=== PATIENT | male | born 1965 | race Caucasian/White ===

== ENCOUNTER → 2016-10-29 | Outpatient (CLI) | payer OTHER | LOC: M WUC 08:27 | PROVIDERS: ATTEND Family Medicine | DX: Z00.00 Encounter for general adult medical examination without abnormal findings (principal) ==

== ENCOUNTER → 2017-12-16 | Outpatient (REF) | payer OTHER ==
[2017-12-16 19:09] LABS: ANION GAP 6 MEQ/L (8-16); BLOOD UREA NITROGEN 12 MG/DL (7-18); CARBON DIOXIDE LEVEL 29 MEQ/L (21-32); CHLORIDE LEVEL 106 MEQ/L (98-107); CREATININE FOR GFR 0.95 MG/DL (0.70-1.30); GLOMERULAR FILTRATION RATE > 60.0 (>56); GLUCOSE, FASTING 112 MG/DL (70-100); POTASSIUM SERUM 4.2 MEQ/L (3.5-5.1); SODIUM LEVEL 141 MEQ/L (136-145)
== END ==
LOC: M SFHCPLAZ 16:14
DX: Z01.818 Encounter for other preprocedural examination (principal)

== ENCOUNTER → 2018-04-24 | Outpatient (CLI) | payer OTHER ==
[2018-04-24 14:29] LABS: HEMOGLOBIN 15.1 g/dl (13.5-17.5)
[2018-04-24 14:48] LABS: CHOLESTEROL LEVEL 239 MG/DL (<200); CHOLESTEROL RISK RATIO 6.638 (<5); HDL CHOLESTEROL 36 MG/DL (>40); LDL CHOLESTEROL 178 MG/DL (<100); NON-HDL-C 203 MG/DL; TRIGLYCERIDES LEVEL 124 MG/DL (<150)
[2018-04-24 15:11] LABS: ESTIMATED AVERAGE GLUCOSE 120 MG/DL (60-110); HEMOGLOBIN A1c 5.8 %
== END ==
LOC: M WUC 09:09
DX: R73.03 Prediabetes (principal); Z13.220 Encounter for screening for lipoid disorders
CPT/HCPCS: 83036

== ENCOUNTER → 2018-09-17 | Outpatient (REF) | payer OTHER ==
[2018-09-17 13:56] LABS: BLOOD UREA NITROGEN 18 MG/DL (7-18); CALCIUM LEVEL 9.1 MG/DL (8.5-10.1); CARBON DIOXIDE LEVEL 32 MEQ/L (21-32); CHLORIDE LEVEL 104 MEQ/L (98-107); CREATININE FOR GFR 0.98 MG/DL (0.70-1.30); GLOMERULAR FILTRATION RATE > 60.0 (>56); GLUCOSE, FASTING 103 MG/DL (70-100); POTASSIUM SERUM 4.4 MEQ/L (3.5-5.1); SODIUM LEVEL 141 MEQ/L (136-145)
== END ==
LOC: M SFHCPLAZ 12:08
PROVIDERS: ATTEND Family Medicine
DX: M75.101 Unspecified rotator cuff tear or rupture of right shoulder, not specified as traumatic (principal)

== ENCOUNTER → 2019-04-28 | Outpatient (REF) | payer OTHER ==
[2019-04-28 16:34] LABS: HEMATOCRIT 44.7 % (42.0-52.0); HEMOGLOBIN 15.3 g/dl (13.5-17.5)
[2019-04-28 16:39] LABS: BLOOD UREA NITROGEN 16 MG/DL (7-18); CALCIUM LEVEL 9.4 MG/DL (8.5-10.1); CARBON DIOXIDE LEVEL 27 MEQ/L (21-32); CHLORIDE LEVEL 106 MEQ/L (98-107); CHOLESTEROL LEVEL 228 MG/DL (<200); CREATININE FOR GFR 1.01 MG/DL (0.70-1.30); GLOMERULAR FILTRATION RATE > 60.0 (>56); GLUCOSE, FASTING 116 MG/DL (70-100); HDL CHOLESTEROL 41 MG/DL (>40); LDL CHOLESTEROL 148 MG/DL (<100); NON-HDL-C 187 MG/DL; POTASSIUM SERUM 4.1 MEQ/L (3.5-5.1); SODIUM LEVEL 140 MEQ/L (136-145); TRIGLYCERIDES LEVEL 197 MG/DL (<150)
[2019-04-28 17:17] LABS: HEMOGLOBIN A1c 6.5 %
[2019-04-29 10:13] LABS: HEPATITIS C VIRUS ABY INDEX 0.1 INDEX (<0.8); HIV 1&2 SCREEN CENTAUR NEGATIVE (NEGATIVE)
== END ==
LOC: M SFHCPLAZ 13:54
PROVIDERS: ATTEND Family Medicine
DX: Z11.4 Encounter for screening for human immunodeficiency virus [HIV] (principal); Z11.59 Encounter for screening for other viral diseases; Z13.1 Encounter for screening for diabetes mellitus; Z13.220 Encounter for screening for lipoid disorders

== ENCOUNTER → 2019-06-04 | Outpatient (CLI) | payer OTHER ==
--- NOTE | 2019-06-05 17:02 | REP ---
Clinical: Lung screening. History smoking. Comparison: None Technique: Axial low-dose noncontrast images from the thoracic inlet to the upper abdomen using lung screening technique. Findings: The lung tanner are well-aerated. No consolidation, significant nodule or mass lesion is appreciated. No pleural effusion/reaction or pneumothorax. Tracheobronchial tree is patent. Mediastinum demonstrates mild atherosclerotic changes of the coronary arteries without cardiomegaly. Impression: Lung-RADS category I. No nodule or suspicious abnormality. Management recommendations include annual low-dose CT evaluation. Electronically Signed by Wes Lazcano MD 06/05/2019 04:53 P
== END ==
LOC: M RAD 15:45
PROVIDERS: ATTEND Family Medicine
DX: Z12.2 Encounter for screening for malignant neoplasm of respiratory organs (principal); F17.211 Nicotine dependence, cigarettes, in remission

== ENCOUNTER → 2020-08-10 | Outpatient (CLI) | payer OTHER ==
[2020-08-10 10:30] LABS: BASO # 0.1 10^3/uL (0.0-0.2); BASO % 1.3 % (0.0-1.0); EOS # 0.1 10^3/uL (0.0-0.5); EOS % 1.8 % (0.0-3.0); HEMATOCRIT 46.8 % (42.0-52.0); HEMOGLOBIN 15.5 g/dl (13.5-17.5); LYMPH # 1.4 10^3/uL (1.5-5.0); LYMPH % 30.6 % (24.0-44.0); MEAN CORPUSCULAR HEMOGLOBIN 28.8 pg (27.0-33.0); MEAN CORPUSCULAR HGB CONC 33.1 g/dl (32.0-36.5); MONO # 0.4 10^3/uL (0.0-0.8); MONO % 9.7 % (0.0-5.0); NEUTROPHILS # 2.5 10^3/uL (1.5-8.5); NEUTROPHILS % 55.5 % (36.0-66.0); PLATELET COUNT, AUTOMATED 254 10^3/uL (150-450); RED BLOOD COUNT 5.38 10^6/uL (4.30-6.10); WHITE BLOOD COUNT 4.5 10^3/uL (4.0-10.0)
[2020-08-10 10:45] LABS: ALBUMIN 4.3 GM/DL (3.2-5.2); ALT/SGPT 52 U/L (12-78); BILIRUBIN,TOTAL 1.1 MG/DL (0.2-1.0); BLOOD UREA NITROGEN 14 MG/DL (7-18); CALCIUM LEVEL 9.6 MG/DL (8.5-10.1); CARBON DIOXIDE LEVEL 31 MEQ/L (21-32); CHLORIDE LEVEL 100 MEQ/L (98-107); CREATININE FOR GFR 0.99 MG/DL (0.70-1.30); GLOMERULAR FILTRATION RATE > 60.0 (>56); GLUCOSE, FASTING 310 MG/DL (70-100); POTASSIUM SERUM 4.3 MEQ/L (3.5-5.1); SODIUM LEVEL 136 MEQ/L (136-145); TOTAL PROTEIN 7.5 GM/DL (6.4-8.2)
[2020-08-10 10:53] LABS: CREATININE, URINE 78.4 MG/DL; MALB URINE SIEMENS 55.1 MG/L; MAU/CREAT RATIO 70.2 MCG/MG (0.0-30.0)
[2020-08-10 11:23] LABS: HEMOGLOBIN A1c 11.2 %
== END ==
LOC: M WUC 08:12
PROVIDERS: ATTEND Family Medicine
DX: R73.01 Impaired fasting glucose (principal)

== ENCOUNTER → 2020-09-08 | Outpatient (CLI) | payer OTHER ==
--- NOTE | 2020-09-08 18:20 | REP ---
INDICATION: PAIN COMPARISON: None. TECHNIQUE: AP and frog-lateral views of the left hip FINDINGS: Generalized age-related changes include subtle increased sclerosis to the acetabulum with minimal joint space narrowing and marginal spurring. No further overt osteoarthritic or significant degenerative changes are appreciated. No evidence for acute or healed injury. Surrounding soft tissues are normal. IMPRESSION: Mild generalized degenerative changes. <Electronically signed by Wes Lazcano > 09/08/20 [id number]
== END ==
LOC: M WUC 14:09
PROVIDERS: ATTEND Family Medicine
DX: M16.11 Unilateral primary osteoarthritis, right hip (principal)

== ENCOUNTER → 2020-11-08 | Outpatient (CLI) | payer OTHER ==
[2020-11-08 13:43] LABS: BLOOD UREA NITROGEN 23 MG/DL (7-18); CALCIUM LEVEL 9.5 MG/DL (8.5-10.1); CARBON DIOXIDE LEVEL 30 MEQ/L (21-32); CHLORIDE LEVEL 106 MEQ/L (98-107); CHOLESTEROL LEVEL 280 MG/DL (<200); CREATININE FOR GFR 0.95 MG/DL (0.70-1.30); GLOMERULAR FILTRATION RATE > 60.0 (>56); GLUCOSE, FASTING 96 MG/DL (70-100); HDL CHOLESTEROL 40 MG/DL (>40); LDL CHOLESTEROL 177 MG/DL (<100); NON-HDL-C 240 MG/DL; POTASSIUM SERUM 4.5 MEQ/L (3.5-5.1); SODIUM LEVEL 139 MEQ/L (136-145); TRIGLYCERIDES LEVEL 314 MG/DL (<150)
== END ==
LOC: M WUC 09:31
PROVIDERS: ATTEND Family Medicine
DX: E11.9 Type 2 diabetes mellitus without complications (principal)

== ENCOUNTER → 2021-03-02 | Outpatient (CLI) | payer OTHER ==
[2021-03-02 10:19] LABS: BLOOD UREA NITROGEN 20 MG/DL (7-18); CARBON DIOXIDE LEVEL 31 MEQ/L (21-32); CHLORIDE LEVEL 108 MEQ/L (98-107); CREATININE FOR GFR 0.94 MG/DL (0.70-1.30); GLOMERULAR FILTRATION RATE > 60.0 (>56); GLUCOSE, FASTING 99 MG/DL (70-100); POTASSIUM SERUM 4.2 MEQ/L (3.5-5.1); SODIUM LEVEL 143 MEQ/L (136-145)
[2021-03-02 10:21] LABS: HEMOGLOBIN A1c 5.2 %
[2021-03-02 10:32] LABS: CREATININE, URINE 79.1 MG/DL; MALB URINE SIEMENS < 5.0 MG/L; MAU/CREAT RATIO 6.3 MCG/MG (0.0-30.0)
== END ==
LOC: M WUC 08:43
PROVIDERS: ATTEND Family Medicine
DX: E11.9 Type 2 diabetes mellitus without complications (principal)

== ENCOUNTER → 2021-07-28 | Outpatient (CLI) | payer OTHER | LOC: M RAD 07:52 | PROVIDERS: ATTEND Family Medicine | DX: Z87.891 Personal history of nicotine dependence (principal); R91.8 Other nonspecific abnormal finding of lung field ==

== ENCOUNTER → 2021-08-23 | Outpatient (CLI) | payer OTHER ==
[2021-08-23 12:11] LABS: BASO # 0.1 10^3/uL (0.0-0.2); BASO % 1.7 % (0.0-1.0); EOS # 0.1 10^3/uL (0.0-0.5); HEMATOCRIT 45.3 % (42.0-52.0); HEMOGLOBIN 15.1 g/dl (13.5-17.5); LYMPH # 1.5 10^3/uL (1.5-5.0); LYMPH % 27.8 % (24.0-44.0); MEAN CORPUSCULAR HEMOGLOBIN 29.8 pg (27.0-33.0); MEAN CORPUSCULAR HGB CONC 33.3 g/dl (32.0-36.5); MEAN CORPUSCULAR VOLUME 89.5 fl (80.0-96.0); MONO # 0.5 10^3/uL (0.0-0.8); MONO % 9.6 % (2.0-8.0); NEUTROPHILS # 3.1 10^3/uL (1.5-8.5); NEUTROPHILS % 58.3 % (36.0-66.0); PLATELET COUNT, AUTOMATED 253 10^3/uL (150-450); RED BLOOD COUNT 5.06 10^6/uL (4.30-6.10); WHITE BLOOD COUNT 5.4 10^3/uL (4.0-10.0)
[2021-08-23 13:50] LABS: ALBUMIN 4.3 GM/DL (3.2-5.2); ALT/SGPT 52 U/L (12-78); BILIRUBIN,TOTAL 0.6 MG/DL (0.2-1.0); BLOOD UREA NITROGEN 13 MG/DL (7-18); CALCIUM LEVEL 9.7 MG/DL (8.5-10.1); CARBON DIOXIDE LEVEL 30 MEQ/L (21-32); CHLORIDE LEVEL 107 MEQ/L (98-107); CREATININE FOR GFR 0.99 MG/DL (0.70-1.30); GLOMERULAR FILTRATION RATE > 60.0 (>56); GLUCOSE, FASTING 146 MG/DL (70-100); POTASSIUM SERUM 4.5 MEQ/L (3.5-5.1); SODIUM LEVEL 144 MEQ/L (136-145); TOTAL PROTEIN 7.1 GM/DL (6.4-8.2)
[2021-08-23 14:41] LABS: HEMOGLOBIN A1c 6.4 %
== END ==
LOC: M WUC 09:12
PROVIDERS: ATTEND Family Medicine
DX: E11.9 Type 2 diabetes mellitus without complications (principal); R91.8 Other nonspecific abnormal finding of lung field

== ENCOUNTER → 2021-12-18 | Outpatient (REF) | payer OTHER ==
[2021-12-18 11:33] LABS: BLOOD UREA NITROGEN 14 MG/DL (7-18); CREATININE FOR GFR 1.03 MG/DL (0.70-1.30); GLOMERULAR FILTRATION RATE > 60.0 (>56)
== END ==
LOC: M LABWUC 10:23
PROVIDERS: ATTEND Family Medicine
DX: R91.8 Other nonspecific abnormal finding of lung field (principal); E11.9 Type 2 diabetes mellitus without complications

== ENCOUNTER → 2021-12-20 | Outpatient (CLI) | payer OTHER ==
[~2021-12-20] MED LIST: ISOVUE-370 76% 100ML VIAL As Ordered ONE
== END ==
LOC: M RAD 07:36
PROVIDERS: ATTEND Family Medicine
DX: R91.8 Other nonspecific abnormal finding of lung field (principal)
CPT/HCPCS: 71260; Q9967

== ENCOUNTER → 2021-12-28 | Outpatient (CLI) | payer OTHER | LOC: M LAB 08:16 | PROVIDERS: ATTEND Internal Medicine Pulmonary Disease | DX: R91.8 Other nonspecific abnormal finding of lung field (principal) ==

== ENCOUNTER → 2022-01-29 | Outpatient (CLI) | payer OTHER | LOC: M PLARAD 07:47 | PROVIDERS: ATTEND Family Medicine | DX: R91.8 Other nonspecific abnormal finding of lung field (principal) | CPT/HCPCS: 78816; A9552 ==

== ENCOUNTER → 2022-02-22 | Outpatient (CLI) | payer OTHER | LOC: M LAB 09:08 | PROVIDERS: ATTEND Family Medicine | DX: Z12.5 Encounter for screening for malignant neoplasm of prostate (principal) ==

== ENCOUNTER → 2022-03-12 | Outpatient (CLI) | payer OTHER ==
[~2022-03-12] MED LIST changes: +ATOR1TAB21 PO; +CALC0.009 TOP; +CLOB0.057 TOP; -ISOVUE-370 76% 100ML VIAL As Ordered ONE; +LISI10TA22 PO; +MELO15TA28 PO; +METF500T13 PO; +TRIA25CR TOP
== END ==
LOC: M LABSMTC 09:42
PROVIDERS: ATTEND Anesthesiology
DX: Z01.818 Encounter for other preprocedural examination (principal); Z11.52 Encounter for screening for COVID-19

== ENCOUNTER 2022-03-14 07:36 | Day surgery (SDC) | payer OTHER ==
[~2022-03-14] VITALS: Ht 185.4 cm; Wt 113.0 kg
[~2022-03-14 07:36] MED LIST changes: +ALBUTEROL SULFATE 2.5 MG/0.5 ML INH NEB SOLN INH ONE; +LIDOCAINE 4% INJ 5ML AMP NEB ONE
[2022-03-14] MEDS ORDERED: LR 1,000 ML IV SCH (07:45)
[2022-03-14 08:23] LABS: INR 1.01; PROTHROMBIN TIME 13.7 SECONDS (12.7-14.5)
[2022-03-14 08:24] LABS: PARTIAL THROMBOPLASTIN TIME 32.2 SECONDS (25.9-37.0)
[2022-03-14] MEDS ORDERED: CETACAINE SPRAY 5GM As Ordered ONE (08:33)
[2022-03-14] MEDS ORDERED: LIDOCAINE 1% SDV 30ML VIAL As Ordered ONE (08:46)
[2022-03-14] MEDS ORDERED: LIDOCAINE VISCOUS 2% SOLN 15ML UDC As Ordered ONE (08:46)
[2022-03-14] MEDS ORDERED: EPINEPHrine INJ 1 MG/ML 1ML AMP As Ordered ONE (08:46)
[2022-03-14] MEDS ORDERED: THROMBIN SOLN 5,000 UNITS VIAL As Ordered ONE (08:46)
[2022-03-14] MEDS ORDERED: SUGAMMADEX SODIUM 500 MG/5 ML VIAL (BRIDION) As Ordered ONE (09:04)
[2022-03-14] MEDS ORDERED: LIDOCAINE 2% 100MG/5ML SDV (FOR ANES.) As Ordered ONE (09:04)
[2022-03-14] MEDS ORDERED: MIDAZOLAM INJ 2MG/2ML VIAL (J2250 PER 1MG) As Ordered ONE (09:04)
[2022-03-14] MEDS ORDERED: ONDANSETRON 4MG 2ML VIAL As Ordered ONE (09:04)
[2022-03-14] MEDS ORDERED: ACETAMINOPHEN 1000MG 100ML IV BTL (OFIRMEV) (J0131 PER 10MG) As Ordered ONE (09:04)
[2022-03-14] MEDS ORDERED: ROCURONIUM BROMIDE 50 MG/5 ML VIAL As Ordered ONE (09:04)
[2022-03-14] MEDS ORDERED: dexameTHASONE 4 MG/ML 1ML VIAL (J1100 PER 1MG) As Ordered ONE (09:04)
[2022-03-14] MEDS ORDERED: fentaNYL 100 MCG/2 ML INJECTION As Ordered ONE (09:04)
[2022-03-14] MEDS ORDERED: LABETALOL 100MG/20ML VIAL As Ordered ONE (09:27)
[2022-03-14 11:30] VITALS: BP 118/71
== END 2022-03-14 11:58 | disposition home or self-care (01) ==
LOC: M SDC 07:36
PROVIDERS: ATTEND Internal Medicine Pulmonary Disease
DX: R59.0 Localized enlarged lymph nodes (principal); I10 Essential (primary) hypertension; E78.5 Hyperlipidemia, unspecified; E11.9 Type 2 diabetes mellitus without complications; R91.8 Other nonspecific abnormal finding of lung field; L40.9 Psoriasis, unspecified; Z87.891 Personal history of nicotine dependence; Z79.899 Other long term (current) drug therapy; Z79.84 Long term (current) use of oral hypoglycemic drugs
CPT/HCPCS: 31629; 31654; 36415; 71045; 85610; 85730; 88173; 88305; J0131; J1100; J2250; J2405; J3010

== ENCOUNTER → 2022-04-02 | Outpatient (CLI) | payer OTHER ==
[~2022-04-02] MED LIST changes: -ALBUTEROL SULFATE 2.5 MG/0.5 ML INH NEB SOLN INH ONE; -LIDOCAINE 4% INJ 5ML AMP NEB ONE
[2022-04-02 14:37] LABS: BLOOD UREA NITROGEN 17 MG/DL (7-18); GLOMERULAR FILTRATION RATE > 60.0 (>56)
== END ==
LOC: M PLALAB 10:49
PROVIDERS: ATTEND Internal Medicine Pulmonary Disease
DX: R91.8 Other nonspecific abnormal finding of lung field (principal)

== ENCOUNTER → 2022-05-02 | Outpatient (CLI) | payer OTHER ==
[~2022-05-02] MED LIST changes: +ISOVUE-370 76% 100ML VIAL As Ordered ONE
== END ==
LOC: M RAD 09:53
PROVIDERS: ATTEND Internal Medicine Pulmonary Disease
DX: R91.8 Other nonspecific abnormal finding of lung field (principal)
CPT/HCPCS: 71260; Q9967

== ENCOUNTER → 2022-07-24 | Outpatient (REF) | payer OTHER ==
[~2022-07-24] MED LIST changes: -ISOVUE-370 76% 100ML VIAL As Ordered ONE
== END ==
LOC: M SFHCLERA 09:44
PROVIDERS: ATTEND Family Medicine
DX: Z53.20 Procedure and treatment not carried out because of patient's decision for unspecified reasons (principal)

== ENCOUNTER → 2022-07-26 | Outpatient (CLI) | payer OTHER ==
[2022-07-26 10:59] LABS: ALBUMIN 3.7 G/DL (3.2-5.2); ALKALINE PHOSPHATASE 56 U/L (46-116); ALT/SGPT 35 U/L (7.0-40); AST/SGOT 19 U/L (<34); BILIRUBIN,TOTAL 0.6 MG/DL (0.3-1.2); BLOOD UREA NITROGEN 13 MG/DL (9-23); CALCIUM LEVEL 9.4 MG/DL (8.5-10.1); CARBON DIOXIDE LEVEL 27 MMOL/L (20-31); CHLORIDE LEVEL 105 MMOL/L (98-107); CHOLESTEROL LEVEL 132 MG/DL (<200); CHOLESTEROL RISK RATIO 3.77 (<5); CREATININE FOR GFR 0.79 MG/DL (0.70-1.30); GLOMERULAR FILTRATION RATE > 60.0 (>56); GLUCOSE, FASTING 193 MG/DL (60-100); LDL CHOLESTEROL 68.4 MG/DL (<100); NON-HDL-C 97 MG/DL; POTASSIUM SERUM 4.9 MMOL/L (3.5-5.1); SODIUM LEVEL 142 MMOL/L (136-145); TOTAL PROTEIN 6.6 G/DL (5.7-8.2); TRIGLYCERIDES LEVEL 143 MG/DL (<150)
[2022-07-26 11:01] LABS: HEMOGLOBIN A1c 6.5 % (4.0-6.0)
[2022-07-26 11:20] LABS: CREATININE, URINE 178.2 MG/DL; MAU/CREAT RATIO 9.5 MCG/MG (0.0-30.0)
== END ==
LOC: M PLALAB 07:15
PROVIDERS: ATTEND Family Medicine
DX: E78.5 Hyperlipidemia, unspecified (principal); E11.9 Type 2 diabetes mellitus without complications

== ENCOUNTER → 2022-12-24 | Outpatient (CLI) | payer OTHER | LOC: M WUC 11:02 | PROVIDERS: ATTEND Student in an Organized Health Care Education/Training Program | DX: M19.072 Primary osteoarthritis, left ankle and foot (principal) ==

== ENCOUNTER → 2023-02-08 | Outpatient (CLI) | payer OTHER ==
[2023-02-08 10:38] LABS: BLOOD UREA NITROGEN 17 MG/DL (9-23); CALCIUM LEVEL 9.9 MG/DL (8.5-10.1); CARBON DIOXIDE LEVEL 27 MMOL/L (20-31); CHLORIDE LEVEL 105 MMOL/L (98-107); CREATININE FOR GFR 0.83 MG/DL (0.70-1.30); GLOMERULAR FILTRATION RATE > 60.0 (>56); GLUCOSE, FASTING 120 MG/DL (60-100); POTASSIUM SERUM 4.3 MMOL/L (3.5-5.1); SODIUM LEVEL 140 MMOL/L (136-145)
[2023-02-08 11:17] LABS: HEMOGLOBIN A1c 5.5 % (4.0-6.0)
== END ==
LOC: M PLALAB 07:24
PROVIDERS: ATTEND Family Medicine
DX: E11.9 Type 2 diabetes mellitus without complications (principal)

== ENCOUNTER → 2023-05-13 | Outpatient (CLI) | payer OTHER | LOC: M RAD 10:42 | PROVIDERS: ATTEND Internal Medicine Pulmonary Disease | DX: Z87.891 Personal history of nicotine dependence (principal) ==

== ENCOUNTER → 2023-09-05 | Outpatient (CLI) | payer OTHER ==
[2023-09-05 15:47] LABS: HIV 1&2 SCREEN NEGATIVE (NEGATIVE)
[2023-09-05 15:56] LABS: HEPATITIS C VIRUS ABY INDEX 0.02 INDEX (<0.8)
[2023-09-05 15:57] LABS: HEPATITIS B CORE ANTIBODY IGM NEGATIVE (NEGATIVE)
== END ==
LOC: M PLALAB 09:08
PROVIDERS: ATTEND Physician Assistant
DX: L40.9 Psoriasis, unspecified (principal)

== ENCOUNTER → 2023-11-05 | Outpatient (CLI) | payer OTHER ==
[~2023-11-05] MED LIST changes: +CALC0.0017 TOP; -CALC0.009 TOP
[2023-11-05 11:44] LABS: HEMOGLOBIN A1c 4.8 % (4.0-6.0)
[2023-11-05 11:52] LABS: CREATININE, URINE 205.9 MG/DL; MAU/CREAT RATIO 3.8 MCG/MG (0.0-30.0)
[2023-11-05 11:53] LABS: ALBUMIN 4.2 G/DL (3.2-5.2); ALKALINE PHOSPHATASE 50 U/L (46-116); ALT/SGPT 18 U/L (7.0-40); AST/SGOT 9 U/L (<34); BILIRUBIN,TOTAL 0.7 MG/DL (0.3-1.2); BLOOD UREA NITROGEN 19 MG/DL (9-23); CALCIUM LEVEL 9.6 MG/DL (8.3-10.6); CARBON DIOXIDE LEVEL 31 MMOL/L (20-31); CHLORIDE LEVEL 108 MMOL/L (98-107); CHOLESTEROL LEVEL 92 MG/DL (<200); CHOLESTEROL RISK RATIO 3.02 (<5); CREATININE FOR GFR 1.02 MG/DL (0.70-1.30); GLOMERULAR FILTRATION RATE > 60.0 (>49); GLUCOSE, FASTING 84 MG/DL (74-106); HDL CHOLESTEROL 30.4 MG/DL (>40); LDL CHOLESTEROL 31.6 MG/DL (<100); NON-HDL-C 61.6 MG/DL; POTASSIUM SERUM 4.6 MMOL/L (3.5-5.1); SODIUM LEVEL 138 MMOL/L (136-145); TOTAL PROTEIN 6.6 G/DL (5.7-8.2); TRIGLYCERIDES LEVEL 150 MG/DL (<150)
== END ==
LOC: M PLALAB 08:07
PROVIDERS: ATTEND Family Medicine
DX: E11.9 Type 2 diabetes mellitus without complications (principal); E78.5 Hyperlipidemia, unspecified

== ENCOUNTER → 2024-02-10 | Outpatient (CLI) | payer OTHER ==
[2024-02-10 11:54] LABS: HEMOGLOBIN A1c 4.5 % (4.0-6.0)
[2024-02-10 12:08] LABS: ALBUMIN 4.1 G/DL (3.2-5.2); ALKALINE PHOSPHATASE 46 U/L (46-116); ALT/SGPT 18 U/L (7.0-40); AST/SGOT < 8 U/L (<34); BLOOD UREA NITROGEN 19 MG/DL (9-23); CARBON DIOXIDE LEVEL 30 MMOL/L (20-31); CHLORIDE LEVEL 105 MMOL/L (98-107); CREATININE FOR GFR 0.96 MG/DL (0.70-1.30); GLOMERULAR FILTRATION RATE > 60.0 (>49); GLUCOSE, FASTING 68 MG/DL (74-106); POTASSIUM SERUM 4.7 MMOL/L (3.5-5.1); SODIUM LEVEL 141 MMOL/L (136-145); TOTAL PROTEIN 6.7 G/DL (5.7-8.2)
== END ==
LOC: M PLALAB 08:45
PROVIDERS: ATTEND Family Medicine
DX: Z11.9 Encounter for screening for infectious and parasitic diseases, unspecified (principal); W57.XXXS Bitten or stung by nonvenomous insect and other nonvenomous arthropods, sequela; E11.9 Type 2 diabetes mellitus without complications

== ENCOUNTER → 2024-08-25 | Outpatient (CLI) | payer OTHER ==
[~2024-08-25] MED LIST changes: +CETI10TA4 PO; +FLOM0.4C39 PO; +GINK60CA2 PO; +KRIL1CAP20 PO; +MAGN200T PO; +RISA150P SQ; +THERTAB52 PO; +TIRZ10PE SQ; +VITA100093 PO
[2024-08-25 10:56] LABS: MALB URINE SIEMENS < 3.0 MG/L
[2024-08-25 10:57] LABS: ALKALINE PHOSPHATASE 49 U/L (40-129); ALT/SGPT 20 U/L (7.0-40); AST/SGOT 12 U/L (<34); BILIRUBIN,TOTAL 0.8 MG/DL (0.3-1.2); BLOOD UREA NITROGEN 23 MG/DL (9-23); CALCIUM LEVEL 10.3 MG/DL (8.3-10.6); CARBON DIOXIDE LEVEL 30 MMOL/L (20-31); CHLORIDE LEVEL 105 MMOL/L (98-107); CHOLESTEROL LEVEL 105 MG/DL (<200); CHOLESTEROL RISK RATIO 2.77 (<5); CREATININE FOR GFR 0.98 MG/DL (0.70-1.30); GLOMERULAR FILTRATION RATE > 60.0 (>49); GLUCOSE, FASTING 84 MG/DL (74-106); HDL CHOLESTEROL 37.8 MG/DL (>40); NON-HDL-C 67.2 MG/DL; POTASSIUM SERUM 5.1 MMOL/L (3.5-5.1); PSA SCREENING 6.18 NG/ML (< 4.00); SODIUM LEVEL 141 MMOL/L (136-145); TOTAL PROTEIN 7.2 G/DL (5.7-8.2); TRIGLYCERIDES LEVEL 156 MG/DL (<150)
[2024-08-25 11:16] LABS: HEMOGLOBIN A1c 4.7 % (4.0-6.0)
== END ==
LOC: M PLALAB 08:16
PROVIDERS: ATTEND Family Medicine
DX: E78.5 Hyperlipidemia, unspecified (principal); E11.9 Type 2 diabetes mellitus without complications; Z12.5 Encounter for screening for malignant neoplasm of prostate
CPT/HCPCS: 36415; 80053; 80061; 82043; 83036; G0103

== ENCOUNTER 2024-08-31 12:11 | Day surgery (SDC) | payer OTHER ==
[~2024-08-31] VITALS: Ht 185.4 cm; Wt 97.5 kg
[2024-08-31] MEDS ORDERED: propofoL 200 MG/20 ML VIAL As Ordered ONE (12:42)
[2024-08-31 13:38] VITALS: TEMP 97.5
[2024-08-31 13:59] VITALS: BP 120/80; O2SAT 97
== END 2024-08-31 14:08 | disposition home or self-care (01) ==
LOC: M OPP 12:11
PROVIDERS: ATTEND Internal Medicine Gastroenterology
DX: Z12.11 Encounter for screening for malignant neoplasm of colon (principal); K64.0 First degree hemorrhoids; K57.30 Diverticulosis of large intestine without perforation or abscess without bleeding; I10 Essential (primary) hypertension; E78.5 Hyperlipidemia, unspecified; E11.9 Type 2 diabetes mellitus without complications; M19.90 Unspecified osteoarthritis, unspecified site; G43.909 Migraine, unspecified, not intractable, without status migrainosus; Z87.891 Personal history of nicotine dependence; Z88.5 Allergy status to narcotic agent; Z88.8 Allergy status to other drugs, medicaments and biological substances; Z79.84 Long term (current) use of oral hypoglycemic drugs; Z79.85 Long-term (current) use of injectable non-insulin antidiabetic drugs; Z79.899 Other long term (current) drug therapy

== ENCOUNTER → 2024-09-28 | Outpatient (CLI) | payer OTHER | LOC: M PLALAB 08:09 | PROVIDERS: ATTEND Family Medicine | DX: R97.20 Elevated prostate specific antigen [PSA] (principal) ==

== ENCOUNTER → 2024-10-23 | Outpatient (CLI) | payer OTHER | LOC: M PLALAB 07:40 | PROVIDERS: ATTEND Nurse Practitioner Family | DX: R97.20 Elevated prostate specific antigen [PSA] (principal) ==

== ENCOUNTER → 2024-11-11 | Outpatient (REF) | payer OTHER | LOC: M SFHCADAM 08:06 | PROVIDERS: ATTEND Physician Assistant | DX: L40.9 Psoriasis, unspecified (principal) ==

== ENCOUNTER → 2024-11-20 | Outpatient (REF) | payer OTHER | LOC: M SMT 13:20 | PROVIDERS: ATTEND Urology | DX: C61 Malignant neoplasm of prostate (principal) ==

== ENCOUNTER → 2024-12-11 | Outpatient (CLI) | payer OTHER ==
[~2024-12-11] MED LIST changes: -FLOM0.4C39 PO; +TAMS-18 PO; -TRIA25CR TOP; +TRIA80CR15 TOP
== END ==
LOC: M PLALAB 07:52
PROVIDERS: ATTEND Physician Assistant
DX: L40.9 Psoriasis, unspecified (principal)

== ENCOUNTER → 2025-04-21 | Outpatient (CLI) | payer OTHER | LOC: M PLALAB 07:51 | PROVIDERS: ATTEND Urology | DX: C61 Malignant neoplasm of prostate (principal) ==

== ENCOUNTER → 2025-04-21 | Outpatient (CLI) | payer OTHER ==
[2025-04-21 11:16] LABS: ALT/SGPT 30.0 U/L (7.0-40); AST/SGOT 21.0 U/L (<34); CALCIUM LEVEL 9.5 MG/DL (8.3-10.6); CARBON DIOXIDE LEVEL 31.0 MMOL/L (20-31); CHLORIDE LEVEL 107.0 MMOL/L (98-107); CREATININE FOR GFR 0.98 MG/DL (0.70-1.30); GLOMERULAR FILTRATION RATE 87.7 (>49); POTASSIUM SERUM 5.3 MMOL/L (3.5-5.1); SODIUM LEVEL 146.0 MMOL/L (136-145)
[2025-04-21 11:19] LABS: ESTIMATED AVERAGE GLUCOSE 91.0 MG/DL (60-110)
== END ==
LOC: M PLALAB 07:50
PROVIDERS: ATTEND Family Medicine
DX: E11.9 Type 2 diabetes mellitus without complications (principal)

== ENCOUNTER → 2025-04-27 | Outpatient (CLI) | payer OTHER ==
[2025-04-27 11:19] LABS: CALCIUM LEVEL 9.5 MG/DL (8.3-10.6); CARBON DIOXIDE LEVEL 31 MMOL/L (20-31); CHLORIDE LEVEL 105 MMOL/L (98-107); CREATININE FOR GFR 0.93 MG/DL (0.70-1.30); GLOMERULAR FILTRATION RATE > 90.0 (>49); MAGNESIUM LEVEL 1.9 MG/DL (1.8-2.4); POTASSIUM SERUM 4.6 MMOL/L (3.5-5.1); SODIUM LEVEL 141 MMOL/L (136-145)
== END ==
LOC: M PLALAB 08:04
PROVIDERS: ATTEND Family Medicine
DX: E87.5 Hyperkalemia (principal)